=== PATIENT | female | born 1990 | race African-American/Black ===

== ENCOUNTER 2019-06-12 18:23 | Emergency (ER) | payer OTHER, MEDICAID, SELFPAY ==
[2019-06-12 18:34] VITALS: BP 131/81; PULSE 100; RESP 16; TEMP 36.9; O2SAT 95
[2019-06-12 18:41] VITALS: BP 131/81; PULSE 100; RESP 16; O2SAT 95
--- NOTE | 2019-06-12 18:48 | ED_ITS ---
HPI - Abdominal Pain <SHADY Foley - Last Filed: 06/12/19 22:04> General Chief Complaint: Abdominal Pain Stated Complaint: hot flashes/nausea/back pain/jittery x2 days Time Seen by Provider: 06/12/19 18:28 Source: patient Mode of arrival: ambulatory Limitations: no limitations History of Present Illness HPI narrative: 28-year-old female who is currently on the Depo shot, presents e mergency department today complaining of hot flashes upon awakening this morning and lower abdominal cramping with associated nausea. She denies any aggravating or alleviating factors. States she tried to go to work today but just continued to feel ?not like herself ?. Patient reports an increase in white vaginal discharge and says it is more loose past few months than normal, she denies any orders. She denies any fevers, chills, chest pain, dyspnea, vomiting, diarrhea, syncope, or vaginal bleeding. MD complaint: abdominal pain Onset (ago): hour(s) Pain Consistency: constant Severity: moderate Severity scale (1-10): 3 Quality: cramping Radiation: LLQ and RLQ Migration to: no migration Relieving factors: nothing Exacerbating factors: nothing Related Data Previous Rx's Medication Instructions Recorded sulfamethoxazole-trimethoprim 1 tab PO BID 5 Days #10 tab 06/12/19 [Bactrim DS] Allergies Allergy/AdvReac Type Severity Reaction Status Date / Time No Known Drug Allergies Allergy Verified 06/12/19 18:38 Review of Systems <SHADY Foley - Last Filed: 06/12/19 22:04> Review of Systems REVIEW OF SYSTEMS: GENERAL: Denies fever, malaise, or wt. loss. HENT: No head trauma, sore throat, or dysphagia. EYES: No loss of vision, double vision, eye pain, or irritation. CARDIOVASCULAR: No chest pain, palpitations, or orthopnea. RESPIRATORY: No shortness of breath or cough. GASTROINTESTINAL: Complains of lower pelvic/abdominal pain, see HPI GENITOURINARY: No flank pain, urinary incontinence, hesitancy, frequency, or dysuria. No dyspareunia. Denies concerns for STIs MUSCULOSKELETAL: No pain, weakness, or trauma. INTEGUMENTARY: No rash, lesions, or pruritus. NEURO: No numbness, tingling, memory loss, confusion, or headaches. PSYCH: No behavior or mood changes. PFSH <SHADY Foley - Last Filed: 06/12/19 22:04> Medical History No significant medical problems (Acute) Social History Smoking Status: Never smoker Social History Smoking Status: Never smoker Exam <SHADY Foley - Last Filed: 06/12/19 22:04> Initial Vital Signs Initial Vital Signs: Vital Signs Temperature 98.4 F 06/12/19 18:34 Pulse Rate 100 H 06/12/19 18:34 Respiratory Rate 16 06/12/19 18:34 Blood Pressure 131/81 06/12/19 18:34 Pulse Oximetry 95 06/12/19 18:34 PHYSICAL EXAMINATION: GENERAL: Well groomed, alert, and cooperative. Answers questions promptly and appropriately. Vital signs noted. HENT: Normocephalic, atraumatic. Hearing intact. Oral mucosa is pink and moist. EYES: Conjunctiva pink, sclera white, no periorbital swelling. CARDIOVASCULAR: S1 and S2 sounds normal. Regular rate and rhythm, no murmurs, clicks, or bruits. No pedal edema. RESPIRATORY: Normal respiratory rate, trachea midline, airway patent. No stridor, nasal flaring or accessory muscle use. Lungs are clear in all port[place] without wheeze, rhonchi, or crackles. GASTROINTESTINAL: Bowel sounds normoactive. Abdomen is soft and slight tenderness to lower pelvic area on both the right and left side. No organomegaly, no palpable masses. PELVIC EXAM: Labia without lesion. Vaginal mucosa is pink without lesions. No adnexal or cervical motion tenderness. Cervix visualized, no erythema moderate amount of white discharge around the cervix, a wet mount culture was taken. Exam was explained, patient tolerated well and did not have any questions. GENITALURINARY: No flank tenderness. MUSCULOSKELETAL: Normal gait and coordination. Equal tone and mass bilaterally. EXTREMITIES: CMS intact, no pedal edema. SKIN: Warm, dry, soft, appropriate color for ethnicity. No lesions, rashes, or wounds. NEURO: Alert and Oriented X 3. Good coordination. No ataxia, or sensory deficits, or cognitive issues. PSYCH: Appropriate affect and mood. <Sai Correa DO - Last Filed: 06/13/19 04:22> Initial Vital Signs Initial Vital Signs: Vital Signs Temperature 98.4 F 06/12/19 18:34 Pulse Rate 100 H 06/12/19 18:34 Respiratory Rate 16 06/12/19 18:34 Blood Pressure 131/81 06/12/19 18:34 Pulse Oximetry 95 06/12/19 18:34 Course <SHADY Foley - Last Filed: 06/12/19 22:04> Course Narrative: Patient stated she was feeling better after administration of saline, Toradol, and Zofran. Follow-up instructions discussed with patient. Orders Ordered: ED Orders 06/12/19 19:30 Complete Blood Count AUTO DIFF Stat Comprehensive Metabolic Panel Stat 06/12/19 19:41 Wet Prep Tric BV Kinsey Stat Discontinued Medications Sodium Chloride (Normal Saline 0.9%) 1,000 mls @ 1,000 mls/hr IV BOLUS ONE Stop: 06/12/19 19:42 Last Admin: 06/12/19 19:40 Dose: 1,000 mls/hr Ketorolac Tromethamine (Toradol) 30 mg IV NOW ONE Stop: 06/12/19 18:46 Last Admin: 06/12/19 19:40 Dose: 30 mg Ondansetron HCl (Zofran) 4 mg IV NOW ONE Stop: 06/12/19 18:44 Last Admin: 06/12/19 19:40 Dose: 4 mg Trimethoprim/Sulfamethoxazole (Bactrim Ds) 1 tab PO NOW ONE Stop: 06/12/19 20:36 Consultations Consultation #1: Patient was staffed with Dr. Correa. Vital Signs - 8 hr 06/12/19 18:34 06/12/19 18:41 06/12/19 19:13 Temperature 98.4 F 98.4 F Pulse Rate 100 H 100 H Respiratory Rate 16 16 Blood Pressure 131/81 Blood Pressure [Right Arm] 131/81 Pulse Oximetry 95 95 <Sai Correa DO - Last Filed: 06/13/19 04:22> Orders Ordered: ED Orders 06/12/19 19:30 Complete Blood Count AUTO DIFF Stat Comprehensive Metabolic Panel Stat 06/12/19 19:41 Wet Prep Tric BV Kinsey Stat Discontinued Medications Sodium Chloride (Normal Saline 0.9%) 1,000 mls @ 1,000 mls/hr IV BOLUS ONE Stop: 06/12/19 19:42 Last Admin: 06/12/19 19:40 Dose: 1,000 mls/hr Ketorolac Tromethamine (Toradol) 30 mg IV NOW ONE Stop: 06/12/19 18:46 Last Admin: 06/12/19 19:40 Dose: 30 mg Ondansetron HCl (Zofran) 4 mg IV NOW ONE Stop: 06/12/19 18:44 Last Admin: 06/12/19 19:40 Dose: 4 mg Trimethoprim/Sulfamethoxazole (Bactrim Ds) 1 tab PO NOW ONE Stop: 06/12/19 20:36 Vital Signs - 8 hr 06/12/19 18:34 06/12/19 18:41 06/12/19 19:13 Temperature 98.4 F 98.4 F Pulse Rate 100 H 100 H Respiratory Rate 16 16 Blood Pressure 131/81 Blood Pressure [Right Arm] 131/81 Pulse Oximetry 95 95 MDM - Abdominal Pain <SHADY Foley - Last Filed: 06/12/19 22:04> Medical Records Attestation: I reviewed the patient's medical records. Lab Data Attestation: I reviewed the patient's lab results. Result diagrams: 06/12/19 19:30 06/12/19 19:30 Lab Results 06/12/19 06/12/19 06/12/19 Range/Units 18:33 19:30 19:30 WBC 9.7 (4.5-11.0) X10^3/uL RBC 3.88 L (4.0-5.2) X10^6/uL Hgb 13.1 (12.0-16.0) g/dL Hct 36.1 (36-46) % MCV 92.9 (80-100) fL MCH 33.8 (26-34) PG MCHC 36.3 H (30-36) % RDW 17.0 H (11.6-14.8) % Plt Count 273 (150-400) X10^3/uL Neut % (Auto) 76.9 H (50-75) % Lymph % (Auto) 15.9 L (25-40) % Emmet % (Auto) 5.0 (3-14) % Eos % (Auto) 1.1 L (2-4) % Baso % (Auto) 1.1 (0-2) % Neut # (Auto) 7500 H (8435-4486) /uL Lymph # (Auto) 1500 (8431-6313) /uL Emmet # (Auto) 500 (0-900) /uL Eos # (Auto) 100 (0-450) /uL Baso # (Auto) 100 (0-100) /uL RBC Morphology Normal morphology Sodium 141 (137-145) mmol/L Potassium 3.4 (3.4-5.1) mmol/L Chloride 109 H (98-107) mmol/L Carbon Dioxide 24 (22-32) mmol/L BUN 9 (7-17) mg/dL Creatinine 0.50 L (0.52-1.04) mg/dL Estimated GFR > 60.0 (>60) mL/min BUN/Creatinine Ratio 18.0 (6-22) Glucose 92 (70-100) mg/dL Calcium 9.6 (8.4-10.2) mg/dL Total Bilirubin 1.5 H (0.2-1.3) mg/dL AST 27 (14-36) IU/L ALT 21 (9-52) IU/L Alkaline Phosphatase 53 (38-126) U/L Total Protein 7.9 (6.3-8.2) g/dL Albumin 4.7 (3.5-5.0) g/dL Globulin 3.2 (1.7-4.1) g/dL Albumin/Globulin Ratio 1.5 (1.0-2.8) Urine RBC None seen (0-5/HPF) Urine WBC 5-10/hpf H (0-5/HPF) Ur Squamous Epith Cells 1-5 /hpf (0-5/HPF) Amorphous Sediment 1+ Urine Bacteria Many (>30) H (None) Urine Mucus 3+ H (Negative) Ur Culture Indicated? Specimen cultured Point of care testing: Point of Care Testing Test Results Negative Urine Dip Bedside Urine Glucose Negative Bedside Urine Bilirubin ++ 2 Bedside Urine Ketone + 15 Urine Specific [place] 1.025 Bedside Urine Occult Blood - Negative Bedside Urine pH 6.0 Bedside Urine Protein + 30 Bedside Urine Urobilinogen 2+ 4mg Bedside Urine Nitrite + Positive Bedside Urine Leukocytes + 70 Esterase MDM Narrative Medical decision making narrative: Differential includes UTI (most likely due to negative less, and urinalysis showing bacteria, leukocyte Estrace, but blood cells, as well as patient is a being lower pelvic symptoms), PID (was likely due to lack of cervical motion tenderness, negative wet mount prep), yeast infection (negative wet mount prep, lack of excessive vaginal discharge), pregn olu/ectopic (less likely due to negative urine , and the fact that patient is currently taking the Depo), side effect of her control (this may be contributing to her symptoms). She may also have been slightly dehydrated which would have exacerbated the affects of her UTI. Strict return precautions given and follow-up instructions discussed. <Sai Correa DO - Last Filed: 06/13/19 04:22> Lab Data Lab Results 06/12/19 06/12/19 06/12/19 Range/Units 18:33 19:30 19:30 WBC 9.7 (4.5-11.0) X10^3/uL RBC 3.88 L (4.0-5.2) X10^6/uL Hgb 13.1 (12.0-16.0) g/dL Hct 36.1 (36-46) % MCV 92.9 (80-100) fL MCH 33.8 (26-34) PG MCHC 36.3 H (30-36) % RDW 17.0 H (11.6-14.8) % Plt Count 273 (150-400) X10^3/uL Neut % (Auto) 76.9 H (50-75) % Lymph % (Auto) 15.9 L (25-40) % Emmet % (Auto) 5.0 (3-14) % Eos % (Auto) 1.1 L (2-4) % Baso % (Auto) 1.1 (0-2) % Neut # (Auto) 7500 H (8195-7350) /uL Lymph # (Auto) 1500 (2689-9274) /uL Emmet # (Auto) 500 (0-900) /uL Eos # (Auto) 100 (0-450) /uL Baso # (Auto) 100 (0-100) /uL RBC Morphology Normal morphology Sodium 141 (137-145) mmol/L Potassium 3.4 (3.4-5.1) mmol/L Chloride 109 H (98-107) mmol/L Carbon Dioxide 24 (22-32) mmol/L BUN 9 (7-17) mg/dL Creatinine 0.50 L (0.52-1.04) mg/dL Estimated GFR > 60.0 (>60) mL/min BUN/Creatinine Ratio 18.0 (6-22) Glucose 92 (70-100) mg/dL Calcium 9.6 (8.4-10.2) mg/dL Total Bilirubin 1.5 H (0.2-1.3) mg/dL AST 27 (14-36) IU/L ALT 21 (9-52) IU/L Alkaline Phosphatase 53 (38-126) U/L Total Protein 7.9 (6.3-8.2) g/dL Albumin 4.7 (3.5-5.0) g/dL Globulin 3.2 (1.7-4.1) g/dL Albumin/Globulin Ratio 1.5 (1.0-2.8) Urine RBC None seen (0-5/HPF) Urine WBC 5-10/hpf H (0-5/HPF) Ur Squamous Epith Cells 1-5 /hpf (0-5/HPF) Amorphous Sediment 1+ Urine Bacteria Many (>30) H (None) Urine Mucus 3+ H (Negative) Ur Culture Indicated? Specimen cultured Point of care testing: Point of Care Testing Test Results Negative Urine Dip Bedside Urine Glucose Negative Bedside Urine Bilirubin ++ 2 Bedside Urine Ketone + 15 Urine Specific [place] 1.025 Bedside Urine Occult Blood - Negative Bedside Urine pH 6.0 Bedside Urine Protein + 30 Bedside Urine Urobilinogen 2+ 4mg Bedside Urine Nitrite + Positive Bedside Urine Leukocytes + 70 Esterase Discharge Plan Departure Patient Disposition: Home Clinical Impression: Urinary tract infection Qualifiers: Urinary tract infection type: acute cystitis Hematuria presence: without hematu david Qualified Code(s): N30.00 - Acute cystitis without hematuria Discharge Date/Time: 06/12/19 20:43 Interventions: ED Discharge Assessment Last Done: 06/12/19 20:42 Instructions: DI for Urinary Tract Infection (UTI) Activity Restrictions/Additional Instructions: Thank you for entrusting me with your care today. As discussed, your labs indicated that you have a urinary tract infection. However, the rest year labs did not show any concerning findings. I prescribed you antibiotics, please take this as directed. We have sent a urine for culture if this antibiotic does not kill the bacteria that we found in your urine, you will get a call within 2 days and you antibiotic will be changed. Please follow up with her primary care provider in the next week for recheck. Remember drink lots of fluids. Return to the emergency department if he develops chest pain, shortness of breath, severe fevers, uncontrollable vomiting, or syncope. Prescriptions: New sulfamethoxazole-trimethoprim [Bactrim DS] 800-160 mg tablet 1 tab PO BID 5 Days Qty: 10 RF: 0 <Sai Correa DO - Last Filed: 06/13/19 04:22> Cosign ED Attending Jesicaature Attestation: I was immediately available in the department for consultation. Documentation has been reviewed. I agree with assessment and plan.
[2019-06-12 19:13] VITALS: TEMP 36.9
[2019-06-12 19:14] LABS: RBC Urine None Seen (0-5/HPF)
[2019-06-12 19:23] LABS: Amorphous Sediment Urine 1+; Bacteria Urine Many (>30); Culture Indicated Urine Specimen Cultured; Mucus Urine 3+ (Negative); Squamous Epithelial Cell Urine 1-5 /HPF (0-5/HPF); WBC Urine 5-10/HPF (0-5/HPF)
[2019-06-12] MEDS: KETOROLAC 60 MG/2 ML VIAL 30 MG IV (19:40)
[2019-06-12] MEDS: SODIUM CHLORIDE 0.9% 1,000 ML 1000 ML IV (19:40)
[2019-06-12] MEDS: ONDANSETRON 4 MG/2 ML INJ IV (19:40)
[2019-06-12 19:50] LABS: Alanine Aminotransferase 21 IU/L (9-52); Albumin 4.7 g/dL (3.5-5.0); Albumin Globulin Ratio 1.5 (1.0-2.8); Alkaline Phosphatase 53 U/L (38-126); Aspartate Aminotransferase 27 IU/L (14-36); Bilirubin Total 1.5 mg/dL (0.2-1.3); Blood Urea Nitrogen 9 mg/dL (7-17); Calcium 9.6 mg/dL (8.4-10.2); Carbon Dioxide 24 mmol/L (22-32); Chloride 109 mmol/L (98-107); Estimated Glomerular Filt Rate > 60.0 mL/min (>60); Globulin 3.2 g/dL (1.7-4.1); Glucose 92 mg/dL (70-100); HEMOLYSIS 28 (0-50); Potassium 3.4 mmol/L (3.4-5.1); Sodium 141 mmol/L (137-145); Total Protein 7.9 g/dL (6.3-8.2)
[2019-06-12 19:59] LABS: Basophils Absolute Auto 100 /uL (0-100); Basophils Percent Auto 1.1 % (0-2); Eosinophils Absolute Auto 100 /uL (0-450); Eosinophils Percent Auto 1.1 % (2-4); Hematocrit 36.1 % (36-46); Hemoglobin 13.1 g/dL (12.0-16.0); Lymphocytes Absolute Auto 1500 /uL (1100-4500); Lymphocytes Percent Auto 15.9 % (25-40); Mean Corpuscular HGB Conc 36.3 % (30-36); Mean Corpuscular Hemoglobin 33.8 PG (26-34); Mean Corpuscular Volume 92.9 fL (80-100); Monocytes Absolute Auto 500 /uL (0-900); Neutrophils Absolute Auto 7500 /uL (1500-7000); Neutrophils Percent Auto 76.9 % (50-75); Platelet Count 273 X10^3/uL (150-400); Red Blood Cell Count 3.88 X10^6/uL (4.0-5.2); White Blood Cell Count 9.7 X10^3/uL (4.5-11.0)
[2019-06-12 20:00] LABS: Add Manual Diff / Slide Review SLIDE REVIEW
[2019-06-12 20:34] LABS: RBC Morphology Normal Morphology
--- NOTE | 2019-06-27 19:04 | PC.NURSE ---
Bolus of 1000ml of NS completed at time of discharge
== END 2019-06-12 20:43 | disposition home or self-care (01) ==
PROVIDERS: Emergency Provider Nurse Practitioner
DX: N30.00 Acute cystitis without hematuria (principal)
CPT/HCPCS: 36591; 80053; 81003; 81015; 81025; 85025; 87086; 87210; 96361; 96374; 96375; 99282; 99284; J1885; J2405

== ENCOUNTER 2019-10-26 18:58 | Emergency (ER) | payer OTHER, MEDICAID, SELFPAY ==
[2019-10-26 19:04] VITALS: PULSE 70; RESP 20; TEMP 36.7; O2SAT 100
--- NOTE | 2019-10-26 19:07 | DI.RAD.S_ITS ---
PROCEDURE: XR FINGER LT MIN 2V INDICATIONS: lt palm/prox thumb pain TECHNIQUE: AP hand, 2 views of the first finger(s) acquired. COMPARISON: None. FINDINGS: Bones: No fractures or dislocations. No suspicious bony lesions. Soft tissues: No suspicious soft tissue calcifications. IMPRESSION: No acute bony abnormalities. Dictated by: Osmani Taylor M.D. on 10/26/2019 at 19:43 Approved by: Osmani Taylor M.D. on 10/26/2019 at 19:44
--- NOTE | 2019-10-26 21:04 | ED.UPPEXIN ---
HPI - Extremity Injury (Upper) General Chief Complaint: Extremity Injury, Upper Stated Complaint: LEFT HAND INJURY Time Seen by Provider: 10/26/19 21:04 Source: patient Mode of arrival: Ambulatory Limitations: no limitations History of Present Illness HPI narrative: The patient I recent her left thumb when attempting opened a car door. Her thumb slipped under the door lever, jamming her thumb. She is unsure the exact mechanism. She has tenderness in the proximal, dorsal thumb. She has full range of motion of the thumb, there is no numbness or tingling. There is no wrist pain. There was no bleeding, or laceration. There is no deformity. There is no pain to the other dentist. She is right-hand dominant. Related Data Allergies Allergy/AdvReac Type Severity Reaction Status Date / Time No Known Drug Allergies Allergy Verified 06/12/19 18:38 Review of Systems Constitutional Constitutional: Denies weakness Comments: No other weakness or recent illness Musculoskeletal Musculoskeletal: Denies numbness Comments: Left thumb pain as described in HPI Integumentary/Breasts Skin/Breast: Denies pruritus, Denies erythema, Denies rash and Denies wounds Neurologic Neurologic: Denies numbness and Denies weakness Patient History Medical History No significant medical problems (Acute) Social History Smoking Status: Never smoker Smoking Status: Never smoker alcohol intake frequency: 0-2 drinks per day Substance Use Type: marijuana Exam Initial Vital Signs Initial Vital Signs: Vital Signs Temperature 98.0 F 10/26/19 19:04 Pulse Rate 70 10/26/19 19:04 Respiratory Rate 20 10/26/19 19:04 Pulse Oximetry 100 10/26/19 19:04 Const General: cooperative and well developed Nutritional Appearance: well nourished Orientation: alert, awake and oriented x3 Skin General: no rashes or lesions noted, No jaundice and No petechiae Neuro General: alert, oriented x3 and gait abnormal Speech: speech normal Motor: muscle tone normal throughout Sensory Exam: no sensory deficits noted Extrem Other: Left wrist nontender. There is no snuffbox tenderness. She has tenderness over the dorsal MCP joint of the thumb. There is no deformity. Range of motion the left thumb is normal. The IP joint is intact. Neurosensory exam the thumb is normal. Course Course Course Narrative: Left thumb exam is benign, the left hand x-ray is normal. The site was Joel wrapped. The patient is advised use ibuprofen for pain. Orders Ordered: ED Orders 10/26/19 19:07 XR finger LT min 2V Stat Vital Signs Vital signs: Vital Signs - 8 hr 10/26/19 19:04 Temperature 98.0 F Pulse Rate 70 Respiratory Rate 20 Pulse Oximetry 100 MDM - Extremity Injury (Upper) Imaging Data Left digit x-rays: Radiologist's impression: No bony injury Discharge Plan Departure Patient Disposition: Home Clinical Impression: Left thumb sprain Qualifiers: Encounter type: initial encounter Sprain of finger site: metacarpophalangeal joint Qualified Code(s): S63.642A - Sprain of metacarpophalangeal joint of left thumb, initial encounter Instructions: DI for Ulnar Collateral Ligament Sprain of Thumb Activity Restrictions/Additional Instructions: Wrapping the thumb as done here in the ER may help with the pain over the next few days until the thumb heels. Advil 3 tablets every 6 hours needed for pain. Recheck with her doctor in 2-3 weeks if not improving. Return to the ER as needed.
[2019-10-26 21:11] VITALS: PULSE 75
--- NOTE | 2019-10-26 21:11 | PC.NURSE ---
CSM fully intact.
[2019-10-26 21:12] VITALS: BP 112/72; PULSE 70; RESP 18; O2SAT 99
== END 2019-10-26 21:24 | disposition home or self-care (01) ==
PROVIDERS: Emergency Provider Emergency Medicine
DX: S63.642A Sprain of metacarpophalangeal joint of left thumb, initial encounter (principal); W23.0XXA Caught, crushed, jammed, or pinched between moving objects, initial encounter
CPT/HCPCS: 73140; 99282; 99283